=== PATIENT | female | born 1990 | race Two or more races ===

== ENCOUNTER 2019-04-29 00:05 | Emergency (ER) | payer SELFPAY ==
[~2019-04-29] VITALS: Ht 157.5 cm; Wt 57.0 kg
[2019-04-29 01:49] VITALS: BP 102/56
== END 2019-04-29 04:23 | disposition left against medical advice (07) ==
LOC: ER 00:05
DX: Z53.21 Procedure and treatment not carried out due to patient leaving prior to being seen by health care provider (principal)